=== PATIENT | female | born 1960 | race Hispanic/Latino ===

== ENCOUNTER 2017-11-05 16:37 | Outpatient (CLI) | payer BC | END 2017-11-05 16:38 | disposition home or self-care (01) | LOC: BICRAD 16:37 | PROVIDERS: ATTEND Family Medicine | DX: M25.561 Pain in right knee (principal) ==

== ENCOUNTER 2017-11-12 16:04 | Outpatient (CLI) | payer BC | END 2017-11-12 16:05 | disposition home or self-care (01) | LOC: ULT 16:04 | PROVIDERS: ATTEND Family Medicine | DX: M79.89 Other specified soft tissue disorders (principal); M79.604 Pain in right leg ==

== ENCOUNTER 2018-05-25 06:06 | Day surgery (SDC) | payer BC ==
[2018-05-24 13:33] VITALS: BMI 28.3
[2018-05-25] MEDS ORDERED: Bupivacaine HCl 0.5%/Epinephrine 1:200,000/PF 30 ml Vial ONE (06:27)
[2018-05-25] MEDS ORDERED: Protamine Sulfate 50 MG/5 ML VIAL ONE (06:27)
[2018-05-25] MEDS ORDERED: Heparin 5,000 UNITS/ML VIAL ONE (06:27)
[2018-05-25] MEDS ORDERED: CEFAZOLIN 1 GM VIAL ONE (06:34)
[2018-05-25] MEDS ORDERED: Sodium Chloride 0.9% 100 ML ONE (06:34)
[2018-05-25] MEDS ORDERED: Fentanyl 250 MCG/5 ML VIAL ONE (06:53)
[2018-05-25] MEDS ORDERED: Midazolam HCl 2 mg/2 ml Vial ONE (07:06)
[2018-05-25] MEDS ORDERED: Fentanyl 100 MCG/2 ML VIAL ONE (08:48)
[2018-05-25] MEDS ORDERED: Hydrocodone-Acetamin 15 ML UDCUP ONE (09:39)
--- NOTE | 2018-05-25 14:30 | OP ---
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 POSTOPERATIVE DIAGNOSIS: Left neck external jugular venous aneurysm. PROCEDURE: Excision/ligation of left neck venous aneurysm. ANESTHESIA: General endotracheal. ESTIMATED BLOOD LOSS: Less than 50. DESCRIPTION OF PROCEDURE: After consent was obtained, the patient was brought to the operating room and placed in the supine position on the operating table. Appropriate central line was placed. General endotracheal anesthesia was induced. The left neck was prepped and draped in the usual sterile fashion. The skin incision was made over the dilated area of external jugular vein. Ultrasound was used to interrogate the area showing an area of venous dilatation superficial to the external jugular vein. Once this area was opened under the platysma, the vein was ligated and divided proximal and distal to the area of dilatation. Valsalva maneuver was then performed and there was no further venous engorgement. The wounds were infiltrated with 0.5% Marcaine with epinephrine and closed in layers. The patient was awakened, extubated, and transferred to the recovery room in stable condition. Job ID: [id number]
== END 2018-05-25 10:15 | disposition home or self-care (01) ==
LOC: SDC 06:06
PROVIDERS: ATTEND Thoracic Surgery (Cardiothoracic Vascular Surgery)
PROC: 05B Upper Veins, Excision (ICD-10-PCS; principal; 2018-05-25)
DX: I86.8 Varicose veins of other specified sites (principal); E78.00 Pure hypercholesterolemia, unspecified; Z79.899 Other long term (current) drug therapy
CPT/HCPCS: 96374; J0670; J0690; J1644; J2250; J2720; J3010; J7050

== ENCOUNTER 2018-08-13 14:48 | Outpatient (CLI) | payer BC ==
--- NOTE | 2018-08-13 16:01 | MMO ---
BILATERAL MAMMOGRAMS: DATE: 08/13/18 HISTORY: Screening mammography. COMPARISON: Multiple exams back to 12/23/10. FINDINGS: Scattered fibroglandular densities and benign-appearing calcifications. Intramammary lymph nodes in e ach breast are stable. No new dominant mass or suspicious calcifications. The study was evaluated with the assistance of computer-aided detection. IMPRESSION: BIRADS 2: Benign Finding(s) Suggest routine follow-up. POS: CHANTELL
== END 2018-08-13 14:49 | disposition home or self-care (01) ==
LOC: SCSMAMMO 14:48
PROVIDERS: ATTEND Internal Medicine Geriatric Medicine
DX: Z12.31 Encounter for screening mammogram for malignant neoplasm of breast (principal)
CPT/HCPCS: 77067

== ENCOUNTER 2020-05-14 13:26 | Outpatient (CLI) | payer BC ==
--- NOTE | 2020-05-14 13:58 | MMO ---
Bilateral MAMMO Bilat Screen [facility]. CLINICAL HISTORY: Patient is 60 years old and is seen for screening. The patient has no family history of breast cancer. The patient has no personal history of cancer. VIEWS: The views performed were: bilateral craniocaudal with tomosynthesis and bilateral mediolateral oblique with tomosynthesis. FILMS COMPARED: The present examination has been compared to prior imaging studies performed at [facility] on 05/09/2013, 06/02/2014, 08/11/2015 and 08/12/2016. This study has been interpreted with the assistance of computer-aided detection. MAMMOGRAM FINDINGS: There are scattered fibroglandular densities. There are no suspicious masses, suspicious calcifications, or new areas of architectural distortion. IMPRESSION: THERE IS NO MAMMOGRAPHIC EVIDENCE OF MALIGNANCY. A ROUTINE FOLLOW-UP MAMMOGRAM IN 1 YEAR IS RECOMMENDED. THE RESULTS OF THIS EXAM WERE SENT TO THE PATIENT. ACR BI-RADS Category 1 - Negative MAMMOGRAPHY NOTE: 1. A negative mammogram report should not delay a biopsy if a dominant of clinically suspicious mass is present. 2. Approximately 10% to 15% of breast cancers are not detected by mammography. 3. Adenosis and dense breasts may obscure an underlying neoplasm. Reported by: EFREN STEPHENSON MD Electonically Signed: [id number]
== END 2020-05-14 13:27 | disposition home or self-care (01) ==
LOC: BICMAMMO 13:26
PROVIDERS: ATTEND Family Medicine
DX: Z12.31 Encounter for screening mammogram for malignant neoplasm of breast (principal)
CPT/HCPCS: 77063; 77067

== ENCOUNTER 2021-05-30 14:28 | Outpatient (CLI) | payer BC | END 2021-05-30 14:29 | disposition home or self-care (01) | LOC: BICMAMMO 14:28 | PROVIDERS: ATTEND Family Medicine | DX: Z12.31 Encounter for screening mammogram for malignant neoplasm of breast (principal); Z13.820 Encounter for screening for osteoporosis; M85.89 Other specified disorders of bone density and structure, multiple sites | CPT/HCPCS: 77063; 77067; 77080 ==

== ENCOUNTER 2022-08-20 08:03 | Outpatient (CLI) | payer BC | END 2022-08-20 08:04 | disposition home or self-care (01) | LOC: BICMAMMO 08:03 | PROVIDERS: ATTEND Family Medicine | DX: Z12.31 Encounter for screening mammogram for malignant neoplasm of breast (principal) | CPT/HCPCS: 77063; 77067 ==

== ENCOUNTER 2023-11-20 15:28 | Outpatient (CLI) | payer BC | END 2023-11-20 15:29 | disposition home or self-care (01) | LOC: BICMAMMO 15:28 | PROVIDERS: ATTEND Family Medicine | DX: Z12.31 Encounter for screening mammogram for malignant neoplasm of breast (principal) | CPT/HCPCS: 77063; 77067 ==

== ENCOUNTER 2025-02-17 10:31 | Outpatient (CLI) | payer OTHER | END 2025-02-17 10:32 | disposition home or self-care (01) | LOC: BICMAMMO 10:31 | PROVIDERS: ATTEND Family Medicine | DX: Z12.31 Encounter for screening mammogram for malignant neoplasm of breast (principal) | CPT/HCPCS: 77063; 77067 ==